=== PATIENT | male | born 1970 | race Caucasian/White ===

== ENCOUNTER 2023-07-15 08:43 | Emergency (ER) | payer OTHER, SELFPAY ==
[2023-07-15 08:49] VITALS: BP 155/83; PULSE 100; RESP 18; TEMP 36.5; O2SAT 97; BMI 35.2
[2023-07-15 08:58] VITALS: BP 155/83; PULSE 99; RESP 16; O2SAT 97
[2023-07-15 09:05] VITALS: O2SAT 96
--- NOTE | 2023-07-15 09:10 | W.ED.WOUNDLC ---
HPI - Wound/Laceration General: Chief Complaint: Extremity Injury, Upper Stated Complaint: Cut finger on right hand Time Seen by Provider: 07/15/23 08:45 Source: patient Mode of arrival: ambulatory Limitations: no limitations History of Present Illness: Patient is a nice 52-year-old male who presents to ED today with a complaint of an injury to his right middle finger that he sustained just prior to arrival while he was using a mandolin to slice sweet potatoes. Patient states his tetanus is up-to-date. Patient states following the injury he irrigated finger, applied triple antibiotic ointment, and applied some type of clotting powder. Patient states finger was continuing to ooze thus prompting his ED evaluation. Onset (ago): hour(s) Extremity Location: Right: hand (R middle finger) Place: home Patient tetanus UTD: Yes Context: accidental Associated symptoms: Reports no associated symptoms Review of Systems Musc: Reports: extremity pain (R middle finger); Denies: extremity swelling, joint pain or joint swelling Skin/Breast: Reports: other (skin avulsion R middle finger) Neuro: Denies: numbness in extremities or sensory changes Physical Exam Const: COMMON NORMALS: no acute distress, patient oriented x3, no limitations, alert and well nourished Extremity: COMMON NORMALS: full ROM and capillary refill normal GENERAL: Yes normal exam except as noted RIGHT UPPER EXTREMITY: Yes hand & digits (skin avulsion to distal R middle finger; superficial) Right hand and digits: Yes ROM exam (normal), Yes neurovascular exam (normal) and Yes other (no bony/tendon involvement; no bleeding currently) Neuro: COMMON NORMALS: patient oriented x3, moves all extremities, no focal motor deficits and no sensory deficits noted SENSORIUM/ORIENTATION: Yes alert Course Vital Signs: Vital signs: Vital Signs Temperature 97.7 F 07/15/23 08:49 Pulse Rate 99 07/15/23 08:58 Respiratory Rate 16 07/15/23 08:58 Blood Pressure 155/83 07/15/23 08:58 Pulse Oximetry 96 07/15/23 09:05 Oxygen Delivery Me thod Room Air 07/15/23 09:05 MDM - Wound/Laceration Medical Decision Making Tetanus is up-to-date. Bleeding has stopped at this time. No tendon or bony involvement. There is nothing repairable and skin will have to heal by secondary intent. Wound will be dressed and patient will be placed on antibiotics. He is a diabetic. Wound care/infection precautions discussed for home. No radiology studies performed this visit Discharge Plan Discharge Patient Disposition: Home Clinical Impression: Avulsion of skin of finger Qualifiers: Encounter type: initial encounter Qualified Code(s): S61.209A - Unspecified open wound of unspecified finger without damage to nail, initial encounter Condition: Stable Prescriptions: New cephalexin 500 mg capsule 500 mg PO Q6H 7 Days Qty: 28 0RF Discharge Orders: Discharge ED (Routine); Ordered 07/15/23 Ordered By: Shavon Wesley Patient Instructions: Skin Avulsion Activity Restrictions/Additional Instructions: As we discussed clean clean with warm soapy water twice daily to help prevent infection. We will place you on antibiotics. When dressed, use a nonadherent dressing. Otherwise you may leave area open to air. Monitor for signs of infection such as redness, swelling, purulent or odorous drainage. Please seek medical reevaluation if these occur. Coding Level of Care Code ED Topographic Computator for Jacob Glass
[2023-07-15 09:37] VITALS: BP 155/83; PULSE 99; RESP 16; O2SAT 99
== END 2023-07-15 09:38 | disposition home or self-care (01) ==
PROVIDERS: Emergency Provider Physician Assistant
DX: S61.202A Unspecified open wound of right middle finger without damage to nail, initial encounter (principal); W26.0XXA Contact with knife, initial encounter; Y93.G1 Activity, food preparation and clean up
CPT/HCPCS: 99283

== ENCOUNTER 2023-09-15 07:37 | Outpatient (CLI) | payer OTHER, SELFPAY ==
--- NOTE | 2023-09-15 07:50 | MR_ITS ---
WS: [id number] MRI LUMBAR SPINE NONCONTRAST HISTORY: LUMBAR POST LAMINECTOMY SYNDROME/DDD COMPARISON: None available. TECHNIQUE: Sagittal and axial multisequence imaging is submitted. Normal lumbar alignment with no compression fractures or marrow edema. Disc spaces and vertebral body heights are well-preserved. Conus terminates normally at L1-2 disc level. T9-10: Seen only on this survey imaging is a focal disc protrusion contacting the thoracic cord. Ther e may be slight increased T2 signal within the thoracic cord. L1-L2: Normal. L2-L3: Mild annular disc bulging, ligamentum flavum and facet arthritis. No stenosis. L3-L4: Diffuse annular disc bulging. Moderate ligamentum flavum and facet arthritis. No disc protrusi on. Facet arthritis encroaching upon the thecal sac. Mild central, bilateral subarticular recess and no foraminal stenosis. L4-L5: Diffuse annular disc bulging with a moderate central disc protrusion. Disc encroaches upon the nerve roots in the thecal sac with narrowing of the subarticular recesses and mild foraminal stenosi s. Greater effacement of fat in the LEFT paracentral region. There is also a very small LEFT laminect utshar defect. L5-S1: Diffuse annular disc bulging, osteophytic ridging and a central/LEFT paracentral disc protrusi on with annular fissure. Disc and osteophyte contacts the S1 nerve roots bilaterally. No paravertebral abnormality. IMPRESSION: 1. L4-5: Moderate central to LEFT paracentral disc protrusion with additional disc bulging and osteop hytes. Significant disc contact on the LEFT traversing L5 nerve root. Disc also contacts the ventral thecal sac and the traversing RIGHT L5 nerve root. 2. L5-S1: Central to LEFT paracentral disc osteophyte. Most significant contact and displacement of t he LEFT S1 nerve root. There is additional moderate central and RIGHT subarticular recess encroachmen t. 3. T9-10: Seen only on the survey imaging is a central disc protrusion contacting the thoracic cord a nd possible myelomalacia. Consider MRI thoracic spine evaluation. 4. L3-4: Mild central, bilateral subarticular recess and no foraminal stenosis.
--- NOTE | 2023-09-15 07:50 | MR_ITS ---
WS: [id number] MRI CERVICAL SPINE NONCONTRAST HISTORY: CERVICAL DDD COMPARISON: None available. Technique: Multiplanar, multisequence noncontrast imaging of the cervical spine. Normal cervical alignment with no compression fracture or significant disc space narrowing. Signal within the cervical cord is normal. Visualized posterior fossa is unremarkable. Craniocervical junction, C1 and C2 relationship, odontoid process and soft tissues are normal. C2-C3: Normal. C3-C4: Mild osteophytic ridging and disc bulging. Mild LEFT foraminal narrowing. C4-C5: Diffuse annular disc bulging with a shallow central disc protrusion. Osteophyte and disc encro achment upon the ventral thecal sac. There is contact on the ventral thecal sac with mild bilateral f oraminal stenosis, LEFT greater than RIGHT. Bilateral facet arthritis. C5-C6: Diffuse annular disc bulging, osteophytic ridging and a moderate-sized LEFT paracentral and pr oximal foraminal disc protrusion. Moderate central with bilateral foraminal stenosis. Deformity of th e LEFT lateral thecal sac by the disc protrusion. C6-C7: Mild annular disc bulging and osteophytic ridging. Moderate sized RIGHT foraminal disc protrus ion extending cephalad from the disc space. There is contact and narrowing of the nerve roots. Modera te central with moderate to severe bilateral foraminal stenosis. C7-T1: Mild annular disc bulging with a central disc protrusion. Mild osteophytic ridging. Mild centr al and foraminal stenosis. T1-2: LEFT paracentral disc protrusion. Paraspinal soft tissue are normal. IMPRESSION: 1. C5-6: Moderate disc bulging, osteophytic ridging and moderate-sized LEFT paracentral and proximal foraminal disc protrusion. Results in moderate central with bilateral foraminal stenosis. Most signif icant contact on the LEFT lateral cervical cord by the disc protrusion. 2. C6-7: Moderate central with moderate to severe bilateral foraminal stenosis. There is a moderate s ize RIGHT foraminal disc protrusion extending cephalad from the disc space. Narrowing of the nerve ro ots. 3. C3-4: Mild LEFT foraminal narrowing. 4. C4-5: Mild central and bilateral foraminal stenosis. 5. C7-T1: Shallow central disc protrusion. Mild central and bilateral foraminal stenosis. 6. T1-2 tiny LEFT paracentral disc protrusion.
== END 2023-09-15 07:38 | disposition home or self-care (01) ==
LOC: RAD 07:37
PROVIDERS: Visit Provider General Practice
DX: M51.36 Other intervertebral disc degeneration, lumbar region (principal); M96.1 Postlaminectomy syndrome, not elsewhere classified; M51.26 Other intervertebral disc displacement, lumbar region; M25.78 Osteophyte, vertebrae; M51.24 Other intervertebral disc displacement, thoracic region; M48.061 Spinal stenosis, lumbar region without neurogenic claudication; M50.322 Other cervical disc degeneration at C5-C6 level; M48.02 Spinal stenosis, cervical region
CPT/HCPCS: 72141; 72148

== ENCOUNTER 2023-11-27 06:55 | Outpatient (CLI) | payer OTHER, SELFPAY ==
--- NOTE | 2023-11-27 07:25 | MR_ITS ---
WS: [id number] MRI THORACIC SPINE WITHOUT CONTRAST TECHNIQUE: Sagittal T1, T2 and STIR imaging. Axial T2 imaging. Noncontrast imaging obtained. CLINICAL INFORMATION: THORACIC REGION RADICULOPATHY COMPARISON: None. FINDINGS: Mild thoracic curve. Mild thoracic kyphosis. Shallow disc protrusions T7-T8 and T9-T10 with slight in dentation of the thoracic cord at these levels. Tiny central protrusion T1-2. Tiny RIGHT paracentral protrusion T6-T7. Mild central canal stenosis T9-10. Moderate facet arthropathy lower thoracic spine. No significant foraminal stenosis. Cord signal is no rmal. Normal paravertebral soft tissues. Adrenal glands are normal. Normal caliber thoracic aorta. A few tiny disc protrusions in the cervical spine on chassis engineer imaging at C4-C6. IMPRESSION: 1. Mild thoracic kyphosis. No acute compression. 2. Small central protrusions at T7-T8 and T9-T10 with slight indentation on the thoracic cord. Mild central canal stenosis T9-T10. 3. Moderate facet arthropathy lower thoracic spine. 4. No other acute findings.
== END 2023-11-27 06:56 | disposition home or self-care (01) ==
LOC: RAD 06:56
PROVIDERS: Visit Provider Nurse Practitioner Family
DX: M51.24 Other intervertebral disc displacement, thoracic region (principal); M47.814 Spondylosis without myelopathy or radiculopathy, thoracic region; M48.04 Spinal stenosis, thoracic region; M40.204 Unspecified kyphosis, thoracic region
CPT/HCPCS: 72146

== ENCOUNTER 2024-07-04 08:26 | Emergency (ER) | payer OTHER, SELFPAY ==
[2024-07-04 08:41] VITALS: BP 148/93; PULSE 83; RESP 16; TEMP 36.4; O2SAT 98
--- NOTE | 2024-07-04 08:44 | PC.NURSE ---
PT PRESENTS WITH COMPLAINT OF NECK PAIN AND RASH. 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 PT STATES HE IS UNABLE TO TURN HIS NECK TO THE RIGHT WITHOUT SEVERE PAIN. PT STATES HE DOES NOT WANT ANY PAIN MEDICATION HE IS CURRENTLY SEEING PAIN MANAGEMENT. PT ALSO HAS RASH SPECIFIC TO LEFT SIDE OF BODY. RASH EXTENDS FROM LEFT EAR DOWN TO CHEST AND ONTO LEFT SHOULDER. RASH APPEARS REDDENED AND SMALL BLISTERING IN SOME PLACES. PT STATES RASH IS PAINFUL. PT DENIES ITCHING. PT IS ALERT AND ORIENTED WITH EVEN, UNLABORED RESPIRAITONS WITH PATENT AIRWAY.
--- NOTE | 2024-07-04 09:00 | W.ED.SKABFB ---
HPI - Skin/Abscess/Foreign Bdy General: Chief complaint: Skin/Abscess/Foreign Body Stated complaint: Neck ache and rash head and neck Time Seen by Provider: 07/04/24 08:33 History of Present Illness: Patient presents to the ER with a rash of blisterlike patches on the left side of his head neck and chest. Been going on for several days. They burn. Patient has not had chickenpox ever. [facility] Related Data Previous Rx's Medication Instructions Recorded prednisone 50 mg tablet 50 mg PO DAILY #5 tabs 07/04/24 valacyclovir 1 gram tablet 1,000 mg PO BID 7 days #14 tabs 07/04/24 (Valtrex) Allergies Allergy/AdvReac Type Severity Reaction Status Date / Time Penicillins Allergy ALGY-Rash Verified 07/15/23 09:06 Review of Systems General: Reports: 10 or more systems reviewed and unremarkable except in HPI and below Physical Exam Const: COMMON NORMALS: no acute distress, average body habitus, patient oriented x3, no limitations, healthy appearing, alert and well nourished HENMT: COMMON NORMALS: normocephalic, atraumatic, hearing grossly normal bilaterally, external ears normal, Normal external nose present and moist oral mucous membranes HEAD & SCALP: normocephalic and atraumatic NOSE: Normal external nose present EXTERNAL EAR: Yes external ears normal Neck/C-Spine: COMMON NORMALS: full ROM, no lymphadenopathy, supple, no meningeal signs, no JVD and Thyroid normal THYROID: Thyroid normal Chest: COMMONS NORMALS: normal inspection of the chest and normal palpation of entire chest wall Resp: COMMON NORMALS: normal respiratory effort, No retractions, No use of accessory muscles and clear to auscultation bilaterally AUSCULTATION: clear to auscultation bilaterally Cardio: COMMON NORMALS: no JVD, regular rate, regular rhythm, S1 normal heart sound present, S2 normal heart sound present, No gallops present (Cardio), No clicks present (Cardio), No murmurs present (Cardio) and No rub (Cardio) RATE: regular rate RHYTHM: regular rhythm HEART SOUNDS: S1 normal heart sound present and S2 normal heart sound present GI: COMMON NORMALS: Normal to inspection, nondistended, normoactive bowel sounds present, Soft to palpation, non-tender, No hepatosplenomegaly present and no masses PALPATION: Yes Soft to palpation and Yes No hepatosplenomegaly present Neuro: COMMON NORMALS: patient oriented x3 SENSORIUM/ORIENTATION: Yes alert MENINGEAL SIGNS: Yes no meningeal signs Skin: NARRATIVE SKIN EXAM: Patient has a vesicular type rash in a C4 dermatomal pattern from just behind his left ear around down his neck to the beginning of the top part of his left chest. Course Vital Signs: Vital signs: Vital Signs Temperature 97.6 F 07/04/24 08:41 Pulse Rate 83 07/04/24 08:41 Respiratory Rate 16 07/04/24 08:41 Blood Pressure 148/93 07/04/24 08:41 Pulse Oximetry 98 07/04/24 08:41 Oxygen Delivery Me thod Room Air 07/04/24 08:41 MDM - Skin/Abscess/Foreign Bdy Medicial Decision Making Patient has shingles rash in of the dermatomal pattern of C4. Patient be given Valtrex and prednisone. And discharged Differential Diagnosis Likely herpes zoster Medical Records I reviewed the patient's medical records. Lab Data I reviewed the patient's lab results. No radiology studies performed this visit Discharge Plan Discharge Patient Disposition: Home Clinical Impression: Herpes zoster Qualifiers: Herpes zoster complications: without complications Qualified Code(s): B02.9 - Zoster without complications Condition: Stable Prescriptions: New prednisone 50 mg tablet 50 mg PO DAILY Qty: 5 0RF valacyclovir [Valtrex] 1 gram tablet 1,000 mg PO BID 7 Days Qty: 14 0RF Discharge Orders: Discharge ED (Routine); Ordered 07/04/24 Ordered By: Lele Singh Patient Instructions: Shingles (ED) Activity Restrictions/Additional Instructions: Thank you for choosing [facility] for your healthcare needs today. Please realize that you were seen in the emergency department and that we are providing you with an emergency medical screening exam and this may not be a complete and all exclusive of all testing and/or medical workup we may need to determine your element or severity of your illness. It is very important that you follow-up as instructed with your primary care provider or specialist for the additional evaluation and to discuss your medical treatment plan. You may return to the emergency department should you have concerns or if your condition changes or worsens in any way. Coding Level of Care Code ED Photographs Curator for Jacob Glass
[2024-07-04 09:22] VITALS: BP 148/93; PULSE 81; O2SAT 97
[2024-07-04 09:23] VITALS: BP 136/83; PULSE 87; O2SAT 98
== END 2024-07-04 09:34 | disposition home or self-care (01) ==
PROVIDERS: Emergency Provider Emergency Medicine
DX: B02.9 Zoster without complications (principal)
CPT/HCPCS: 99283

== ENCOUNTER 2025-09-23 12:43 | Emergency (ER) | payer OTHER, SELFPAY ==
--- OUTSIDE RECORDS SUMMARY | 2024-07-24 03:00 | XMS_ITS ---
Author Organization [facility] Address [address] [place] [address] Support Name Relationship Address , Tequila Goff Emergency Contact [address] [place] [address] [address] Unavailable Chalo Goff Guarantor Unknown [phone] Care Team Providers Care Tire Vulcanizer Name Role Phone Summer Jeremiah Primary Care Provider Unavailabl e Migration, Provider Unavailable Unavailable REASON FOR VISIT EMR-[facility] Encounters Encounter Location Date Provider Diagnosis Migrated_Facility 0 0 07/24/2024 Provider Migration Plan Of Treatment Medication Medication Name Sig Start Date Stop Date Notes HYDROcodone-Acetaminop hen 5-325 MG Oral Tablet 1 Tablet every 12 hours PRN, do not exceed 2 tablets per day 02/01/2024 03/02/2024 *Reorder from [facility] for eRx and Interaction Alerts* Progress Notes * Chalo GOFF DeanDOB: (55 yo M)Acc No.[id number]:07/24/2024 Patient: Nic ALBERTNUNO Chalo Hui :1970 A ge:53 Y S ex:Male Address:[address], [place], [address] * Refills Stop HYDROcodone-Acetaminophen 5-325 MG Oral Tablet, 1 Tablet every 12 hours PRN, do not exceed 2 tablets per day Subjective: * Chief Complaints: * E MR-Avinash * * Date:
--- OUTSIDE RECORDS SUMMARY | 2024-07-25 03:00 | XMS_ITS ---
Author Organization [facility] Address [address] [place] [address] Support Name Relationship Address , Tequila Goff Emergency Contact [address] [place] [address] Unavailable Chalo Goff Guarantor Unknown Care Team Providers Care Consulting Technical Director Name Role Phone Jeremiah Wheeler Primary Care Provider Unavailabl e Migration, Provider Unavailable Unavailable Allergies Allergen (clinical drug ingredient) Drug/Non Drug Allergy documented on EMR Reaction Allergy Type Onset Date Status Bee stings (uncoded) Hard to breathe Allergy Active PCN (uncoded) Rash as an infant Allergy Active Substance with penicillin structure and antibacterial mechanism of action (substance) Penicillins Unknown Drug Allergy Active REASON FOR VISIT EMR-Avinash Medications Medication SIG (Take, Route, Frequency, Duration) Notes Start Date End Date Status HCTZ/12.5/Lisinopril *Reorder fr om [facility] for eRx and Interaction Alerts* Active buPROPion HCl *Pick strength-f orm from [facility] for eRX* Active Lisinopril *Pick strength-f orm from [facility] for eRX* Active Metformil hcl *Reorder from [facility] for eRx and Interaction Alerts* Active Empaglifozin *Reorder from [facility] for eRx and Interaction Alerts* Active Gabapentin *Pick strength-f orm from [facility] for eRX* Active Atrovastatin calcium *Reorder fr om [facility] for eRx and Interaction Alerts* Active Sertraline HCl *Pick strength-f orm from [facility] for eRX* Active atorvastatin *Reorder from [facility] for eRx and Interaction Alerts* Active Jardiance *Pick strength-f orm from [facility] for eRX* Active LEVOTHYROXINE NA *Reorder from [facility] for eRx and Interaction Alerts* Active busPIRone HCl *Pick strength-f orm from [facility] for eRX* Active Metformin *Reorder from [facility] for eRx and Interaction Alerts* Active Sertraline *Reorder from [facility] for eRx and Interaction Alerts* Active Methocarbamol *Pick strength-f orm from [facility] for eRX* Active HYDROcodone-Acetamino phen *Pick strength-form from [facility] for eRX* Active Levothyroxine *Reorder from [facility] for eRx and Interaction Alerts* Active Social History Social History Additional Details Category Social Info Options Details Migrated Social History Migrated Social History Alcoholic beverages? - No, Applying for disability? - No, Drug or substance abuse? - No, Employment type - [place] : [place], Intake of calcium and vitamin D - Denies : Milk, Involved in any legal proceedings or lawsuits? - No, Marital Status - , Nonprescription drug use? - No, Number of children - 1 son^2 daughters, Participation in detoxification or rehabilitation - No, Recreational or illicit drug use - Denies, Smoking - No, Tobacco - Denies, Working currently? - No Encounters Encounter Location Date Provider Diagnosis Migrated_Facility 0 0 07/25/2024 Provider Migration Plan Of Treatment No Information Progress Notes * Chalo GOFF DeanDOB: (55 yo M)Acc No.[id number]:07/25/2024 Patient: Nic Chalo DUGAN Ez :1970 A ge:53 Y S ex:Male Address:[address] [place] [address], [place], [address] Subjective: * Chief Complaints: * E MR-Avinash * Surgical History: Hernia - [employer] [place] - ? Since 1968 Hernia surgery Since 1969 Ear tube placement Since 1970 Finger surgery Since 1993 2007 Left pinky tendon - [place] - ? Since 1994 Hemilaminectomy dicsectomy L4, L5, S1 - [place] - ? Since 1996 Discectomy L4-5 S1 Since 1996 Left for finger tendon - [place] - ? Since 2008 * Family History: M igrated Family History: : Cancer, c hronic pain, D iabetes, H eart disease, R heumatoid arthritis, S troke. * Social History: M igrated Social History: M igrated Social History: Alcoholic beverages? - No, A pplying for disability? - No, D rug or substance abuse? - No, E mployment type - Disability : [place], I ntake of calcium and vitamin D - Denies : Milk, I nvolved in any legal proceedings or lawsuits? - No, M arital Status - , N onprescription drug use? - No, N umber of children - 1 son^2 daughters, Participation in detoxification or rehabilitation - No, R ecreational or illicit drug use - Denies, S moking - No, T obacco - Denies, W orking currently? - No. * Medications: T akingSertraline HCl , Notes to Pharmacist: *Pick strength-form from [facility] for eRX*Metformin , Notes to Pharmacist: *Reorder from [facility] for eRx and Interaction Alerts*Methocarbamol , Notes to Pharmacist: *Pick strength-form from [facility] for eRX*Metformil hcl , Notes to Pharmacist: *Reorder from [facility] for eRx and Interaction Alerts*Gabapentin , Notes to Pharmacist: *Pick strength-form from [facility] for eRX*LEVOTHYROXINE NA , Notes to Pharmacist: *Reorder from [facility] for eRx and Interaction Alerts*busPIRone HCl , Notes to Pharmacist: *Pick strength- form from [facility] for eRX*HCTZ/12.5/Lisinopril , Notes to Pharmacist: *Reorder from [facility] for eRx and Interaction Alerts*HYDROcodone-Acetaminophen , Notes to Pharmacist: *Pick strength-form from [facility] for eRX*Sertraline , Notes to Pharmacist: *Reorder from [facility] for eRx and Interaction Alerts*buPROPion HCl , Notes to Pharmacist: *Pick strength-form from [facility] for eRX*Lisinopril , Notes to Pharmacist: *Pick strength-form from [facility] for eRX*Empaglifozin , Notes to Pharmacist: *Reorder from [facility] for eRx and Interaction Alerts*Atrovastatin calcium , Notes to Pharmacist: *Reorder from [facility] for eRx and Interaction Alerts*Levothyroxine , Notes to Pharmacist: *Reorder from [facility] for eRx and Interaction Alerts*atorvastatin , Notes to Pharmacist: *Reorder from [facility] for eRx and Interaction Alerts*Jardiance , Notes to Pharmacist: *Pick strength-form from [facility] for eRX*Taking Sertraline HCl , Notes to Pharmacist: *Pick strength- form from [facility] for eRX*Taking Metformin , Notes to Pharmacist: *Reorder from [facility] for eRx and Interaction Alerts*Taking Methocarbamol , Notes to Pharmacist: *Pick strength-form from [facility] for eRX*Taking Metformil hcl , Notes to Pharmacist: *Reorder from [facility] for eRx and Interaction Alerts*Taking Gabapentin , Notes to Pharmacist: *Pick strength-form from [facility] for eRX*Taking LEVOTHYROXINE NA , Notes to Pharmacist: *Reorder from [facility] for eRx and Interaction Alerts*Taking busPIRone HCl , Notes to Pharmacist: *Pick strength-form from [facility] for eRX*Taking HCTZ/12.5/Lisinopril , Notes to Pharmacist: *Reorder from [facility] for eRx and Interaction Alerts*Taking HYDROcodone-Acetaminophen , Notes to Pharmacist: *Pick strength-form from [facility] for eRX*Taking Sertraline , Notes to Pharmacist: *Reorder from [facility] for eRx and Interaction Alerts*Taking buPROPion HCl , Notes to Pharmacist: *Pick strength-form from [facility] for eRX*Taking Lisinopril , Notes to Pharmacist: *[facility]*Taking Empaglifozin , Notes to Pharmacist: *Reorder from [facility] for eRx and Interaction Alerts*Taking Atrovastatin calcium , Notes to Pharmacist: *Reorder from [facility] for eRx and Interaction Alerts*Taking Levothyroxine , Notes to Pharmacist: *Reorder from [facility] for eRx and Interaction Alerts*Taking atorvastatin , Notes to Pharmacist: *Reorder from [facility] for eRx and Interaction Alerts*Taking Jardiance , Notes to Pharmacist: *Pick strength-form from [facility] for eRX* * Allergies: P CN: Rash as an - AllergyBee stings: Hard to breathe - AllergyPenicillins: Allergy * * Date:
[2025-09-23 12:48] VITALS: BP 120/76; PULSE 93; RESP 15; TEMP 36.4; O2SAT 99
--- OUTSIDE RECORDS SUMMARY | 2025-09-23 12:48 | XMS_ITS | Patient Health Record ---
Author Organization [facility] Address [address] [place] [address] Support Name Relationship Address , Tequila Rothman Emergency Contact [address] [address] Unavailable Chalo Rothman Guarantor Unknown [phone] Care Team Providers Care Survey Cad Technician Name Role Phone Jeremiah Wheeler Primary Care Provider Unavailabl e Allergies Allergen (clinical drug ingredient) Drug/Non Drug Allergy documented on EMR Reaction Allergy Type Onset Date Status Bee Sting Hard to breathe Allergy Acti ve Penicillin Rash as an Drug Allergy Active Substance with penicillin structure and antibacterial mechanism of action (substance) Penicillins Unknown Drug Allergy Active Reason For Referral No Information Medications Medication SIG (Take, Route, Frequency, Duration) Notes Start Date End Date Status Gabapentin *Pick strength-f orm from [facility] for eRX* Active HCTZ/12.5/Lisinopril *Reorder fr om [facility] for eRx and Interaction Alerts* Active Atrovastatin calcium *Reorder fr om [facility] for eRx and Interaction Alerts* Active Lisinopril *Pick strength-f orm from [facility] for eRX* Active Metformil hcl *Reorder from [facility] for eRx and Interaction Alerts* Active Empaglifozin *Reorder from [facility] for eRx and Interaction Alerts* Active Jardiance *Pick strength-f orm from [facility] for eRX* Active HYDROcodone-Acetamino phen *Pick strength-form from [facility] for eRX* Active LEVOTHYROXINE NA *Reorder from [facility] for eRx and Interaction Alerts* Active buPROPion HCl *Pick strength-f orm from [facility] for eRX* Active Sertraline HCl *Pick strength-f orm from [facility] for eRX* Active busPIRone HCl *Pick strength-f orm from [facility] for eRX* [facility]* Active atorvastatin *Reorder from [facility] for eRx and Interaction Alerts* Active Levothyroxine *Reorder from [facility] for eRx and Interaction Alerts* Active Sertraline *[facility]* Active Methocarbamol *Pick strength-f orm from [facility] for eRX* Active Social History Social History Additional Details [...] Tobacco - Denies, Working currently? - No Plan Of Treatment No Information Insurance Providers Payer Name Payer Address Payer Phone Subscriber Number Group Number Insured Name Patient Relationship to Insured Coverage Start Date Coverage End Date [employer] [address] [place] [phone] [id number] Chalo Rothman Self - patient is the insured 2023 Medical (General) History Surgical History Surgery Date(Month/Year) Hernia - [place] - ? Since 1968 Hernia surgery Since 1969 Ear tube placement Since 1970 Finger surgery Since 1993 2007 Left pinky tendon - [place] - ? Sin e 1994 Hemilaminectomy dicsectomy L4, L5, S1 - [place] - ? Since 1996 Discectomy L4-5 S1 Since 1996 Left for finger tendon - [place] - ? Since 2008
--- NOTE | 2025-09-23 12:54 | XRR_ITS ---
PROCEDURE INFORMATION: Exam: XR Left Ankle Exam date and time: 09/23/2025 1:05 PM Age: 55 years old Clinical indication: Injury or trauma; Fall; Sprain or strain; Ankle and foot; Left. No history of surgery is provided. TECHNIQUE: Imaging protocol: Radiologic exam of the left ankle. 8image(s) are provided. Views: 3 or more views. COMPARISON: No relevant prior studies available of the ankle with foot report same day. FINDINGS: Bones/joints: There is some bulky Achilles insertional spurring as well as tiny plantar calcaneal margin. Os trigonum is demonstrated. The foot findings correspond with the foot description same day. Osseous alignment is maintained.Ankle mortise alignment is maintained. No displaced fracture or dislocation is appreciated. There is however some calcific density of the medial malleolus margin and could represent some subtle avulsion injury as well as punctate calcification of the lateral talus, fibular margin.. Consider overall if there is associated point tenderness. Soft tissues: No radiopaque foreign body or subcutaneous emphysema is appreciated. There is slight prominence of the soft tissues overall.Atherosclerotic vascular changes are demonstrated. XR/XR ankle LT min 3V* [id number] IMPRESSION: There are some calcifications with well corticated margins about the distal medial malleolus and fibular tip which could represent some subtle areas of avulsion injury related sequela.If there is persistent pain or limited range of motion then consider MRI.
--- NOTE | 2025-09-23 12:54 | XRR_ITS ---
PROCEDURE INFORMATION: Exam: XR Left Foot Exam date and time: 09/23/2025 1:08 PM Age: 55 years old Clinical indication: Pain; Ankle and foot; Left; Additional info: Injury. No history of surgery is provided. TECHNIQUE: Imaging protocol: Radiologic exam of the left foot. 3image(s) are provided. Views: 3 or more views. COMPARISON: CR XR ankle LT min 3V* [id number] 09/23/2025 1:05 PM. No previous foot radiograph is currently available. FINDINGS: Bones/joints: There is some bulky calcific spurring of the Achilles insertion of the calcaneus along with a tiny plantar calcaneal level spurring. Posterior os trigonum is suggested. Osseous alignment is maintained. No displaced fracture or dislocation is appreciated. There is some accessory ossification for example about the cuboid margin. There is some mild degeneration of the 1st tarsometatarsal and metatarsophalangeal junctions. There appear to be some degenerative changes of the midfoot. There is some subtle calcification about the anterior tarsometatarsal margin of the lateral view with well corticated appearance. The ankle findings correspond with the ankle description same day. Soft tissues: No radiopaque foreign body or subcutaneous emphysema is appreciated. There appears to be some slight prominence of the soft tissues overall.Atherosclerotic vascular changes are demonstrated. XR/XR foot LT min 3V* [id number] IMPRESSION: There are some degenerative changes present with no displaced fracture or dislocation appreciated. There is some marginal calcification however for example about the anterior tarsometatarsal junction of the lateral view and could represent subtle avulsion.If there is persistent pain or limited range of motion then consider MRI.
--- NOTE | 2025-09-23 13:20 | ED_ITS ---
HPI - Fall General: Chief Complaint: Fall Stated Complaint: fall (8ft+) Time Seen by Provider: 09/23/25 13:05 Source: patient Mode of arrival: ambulatory Limitations: no limitations History of Present Illness: 55-year-old male states today he was wor don[place] his [place] standing on a 2 x 4 roughly 7 to 8 feet above ground and it broke. States he landed on his left foot has pain to the lateral left foot along with bruising. States pain sharp in nature is worse with walk on it pain is currently 3 out of 10 it is improved with rest. He denies any other injuries denies hitting his head Related Data Previous Rx's ?Medication ?Instructions ?Recorded prednisone 50 mg tablet 50 mg PO DAILY #5 tabs 07/04 Allergies Allergy/AdvReac Type Severity Reaction Status Date / Time Penicillins Allergy ALGY-Rash Verified 09/23/25 12:53 Review of Systems 2 Musc: Reports: extremity pain Physical Exam Const: COMMON NORMALS: no acute distress, patient oriented x3 and healthy appearing HENMT: COMMON NORMALS: normocephalic and atraumatic HEAD & SCALP: normocephalic and atraumatic Eye: COMMON NORMALS: Equal, round and reactive pupils present and EOMs intact bilaterally PUPIL: Yes Equal, round and reactive pupils present Neck/C-Spine: COMMON NORMALS: full ROM and supple CERVICAL SPINE: No Cervical spine tenderness Chest: COMMONS NORMALS: normal inspection of the chest Resp: COMMON NORMALS: normal respiratory effort, No retractions, No use of accessory muscles and clear to auscultation bilaterally AUSCULTATION: clear to auscultation bilaterally Cardio: COMMON NORMALS: regular rate RATE: regular rate Back/Pelvis: COMMON NORMALS: thoracic and lumbar spine normal to inspection and no thoracic nor lumbar tenderness Extremity: COMMON NORMALS: full ROM NARRATIVE EXTREMITY EXAM: Tenderness noted left lateral foot with bruising no obvious deformity Neuro: COMMON NORMALS: patient oriented x3, moves all extremities and no focal motor deficits Psych: COMMON NORMALS: mental status grossly normal, Normal thought process present and cooperative THOUGHT PROCESS: Normal thought process present Skin: COMMON NORMALS: no rashes or lesions noted and no wounds GENERAL SKIN EXAM: no rashes or lesions noted Course Vital Signs: Vital signs: Vital Signs Temperature 97.5 F L 09/23/25 12:48 Pulse Rate 93 09/23/25 12:48 Respiratory Rate 15 09/23/25 12:48 Blood Pressure 120/76 09/23/25 12:48 Pulse Oximetry 99 09/23/25 12:48 Oxygen Delivery Me thod Room Air 09/23/25 12:48 MDM - Fall Medical Decision Making Patient presents here with fall left foot injury. Differential includes contusion, fracture, dislocation patient's x-ray here is interpreted by me shows no signs of acute fracture will place in an Raf wrap along with crutches he is to weight-bear as tolerated he is to have a repeat x-ray in 1 week return if he has worsening pain he understands agrees to plan Medical Records I reviewed the patient's medical records. Lab Data Radiology Impressions Ankle X-Ray 09/23/25 12:54 IMPRESSION: There are some calcifications with well corticated margins about the distal medial malleolus and fibular tip which could represent some subtle areas of avulsion injury related sequela.If there is persistent pain or limited range of motion then consider MRI. Foot X-Ray 09/23/25 12:54 IMPRESSION: There are some degenerative changes present with no displaced fracture or dislocation appreciated. There is some marginal calcification however for example about the anterior tarsometatarsal junction of the lateral view and could represent subtle avulsion.If there is persistent pain or limited range of motion then consider MRI. All radiology interpretation(s) finalized by discharge Discharge Plan Discharge Patient Disposition: Home Clinical Impression: Contusion of foot, left, Fall Condition: Stable Prescriptions: No Action prednisone 50 mg tablet 50 mg PO DAILY Qty: 5 0RF Discharge Orders: Discharge ED (Routine); Ordered 09/23/25 Ordered By: Temo Brothers Discharge Diet: Advance as tolerated Discharge Activity: Limit activity as instructed and Use walker/crutches as instructed Patient Instructions: Foot Contusion (ED) Print Language: Zimbabwean Coding Level of Care Code ED Cell Tender Helper for Jacob Glass
== END 2025-09-23 14:11 | disposition home or self-care (01) ==
PROVIDERS: Emergency Provider Emergency Medicine
DX: S90.32XA Contusion of left foot, initial encounter (principal); W17.89XA Other fall from one level to another, initial encounter
CPT/HCPCS: 73610; 73630; 99283